=== PATIENT | male | born 1955 | race Caucasian/White ===

== ENCOUNTER 2018-12-30 15:20 | Emergency (ER) | payer MEDICARE, MEDICAID, SELFPAY ==
[2018-12-30 15:24] VITALS: BP 136/90; PULSE 67; RESP 18; TEMP 37.1; O2SAT 96
--- NOTE | 2018-12-30 15:36 | W.ED.GENAD ---
Discharge Plan Disposition Patient Disposition: HOME Condition: Stable Discharge Details Chief Complaint: EyeProblem Clinical Impression: Acute conjunctivitis of left eye Primary Care Provider: Cornel Harper ED Provider: Erasmo Nunez Home Meds and New Rx's Prescriptions: New erythromycin 5 mg/gram (0.5 %) ointment 1 applic OP DAILY 5 Days Qty: 1 RF: 0 amoxicillin-pot clavulanate [Augmentin] 875-125 mg tablet 1 tab PO Q12H Qty: 14 RF: 0 No Action fluoxetine 40 MG capsule 40 mg PO DAILY RF: 0 ibuprofen 800 MG tablet 800 mg PO TID RF: 0 epinephrine [EpiPen 2-Damion] 0.3 MG/0.3 ML auto-injector 1 ea IM DIRECTED RF: 0 pravastatin 10 MG tablet 10 mg PO DAILY RF: 0 Discharge Instructions Instructions: Conjunctivitis (ED) Medical Decision Making 63 yo male comes in with left eye redness since Wednesday. described as burning sensation, denies deep eye pain or severe pain. Denies foreign body or trauma. on exam the left conjunctia is injected throughout, eomi without pain, iop 10, does have some periorbital cellulitis. no findings to suggest orbital cellulitis, will tx with topical erythromycin and given the periorbital swelling will also add augmentin to cover for periorbital cellulitis. Advised f/u with pcp and return precautions given Differential Diagnosis conjunctivitis, periorbital cellulitis HPI General Mode of arrival: ambulatory. Date/Time Provider Initiated Documentation: 12/30/18 15:27. Limitations to Documentation: no limitations. Information obtained by: patient. History of Present Illness 63 year old M presents to the emergency department with the chief complaint of left eye redness, described as mild, Quality is described as burning, and is localized to the eyes. Patient started experiencing this day(s) (5) and it has been constant. No relieving factors improve symptom(s), No exacerbating factors reported . Patient notes no other symptoms.. Related Data Home Medications Medication Instructions Recorded Confirmed fluoxetine 40 mg PO DAILY 01/05/13 09/17/16 ibuprofen 800 mg PO TID 01/05/13 09/17/16 epinephrine [EpiPen 2-Damion] 1 ea IM DIRECTED 04/08/15 09/17/16 pravastatin 10 mg PO DAILY 04/08/15 09/17/16 amoxicillin-pot clavulanate 1 tab PO Q12H #14 tab 12/30/18 [Augmentin] erythromycin 1 applic OP DAILY 5 Days #1 gm 12/30/18 Previous Rx's Medication Instructions Recorded amoxicillin-pot clavulanate 1 tab PO Q12H #14 tab 12/30/18 [Augmentin] erythromycin 1 applic OP DAILY 5 Days #1 gm 12/30/18 Allergies Allergy/AdvReac Type Severity Reaction Status Date / Time venom-honey bee Allergy Severe anaphylaxis Unverified 09/22/17 09:54 [bee venom (honey bee)] risperidone AdvReac Intermediate Chest Unverified 09/22/17 09:54 Palpitations General Stated Complaint: EyeProblem ANTHONY: 4 Review of Systems Review of Systems All systems reviewed & are unremarkable except as noted in HPI and below Constitutional Denies chills, Denies fever(s) and Denies weakness ENT Denies change in voice Cardiovascular Denies chest pain and Denies dyspnea Respiratory Denies cough and Denies dyspnea Gastrointestinal Denies abdominal pain, Denies nausea and Denies vomiting Neurologic Denies weakness [facility] Social History Smoking/Tobacco Use Status: Former Tobacco Use Alcohol Intake: former Drug use: Never Do you feel safe at home: Yes Do you feel safe in your relationship?: Yes Exam Const General: no acute distress Orientation: alert HENMT Head: normal to inspection Ears: external ears normal General nose exam: external nose normal Mouth: moist mucous membranes Eyes Pupils: PERRL Neck Neck: normal visual inspection Resp Effort & Inspection: normal respiratory effort and able to speak in complete sentences Cardio Rate: regular rate Skin General skin exam: no rashes or lesions noted Neuro General: alert and oriented x3 Extrem General: normal to inspection Psych Mental Status: mental status grossly normal Course Vital Signs Temperature 37.1 C 12/30/18 15:24 Pulse 67 12/30/18 15:24 Respiratory Rate 18 12/30/18 15:24 Blood Pressure 136/90 12/30/18 15:24 Pulse Oximetry 96 12/30/18 15:24 Temperature 37.1 C 12/30/18 15:24 Temperature Source Tympanic 12/30/18 15:24 Pulse 67 12/30/18 15:24 Respiratory Rate 18 12/30/18 15:24 Respiratory Effort 12/30/18 15:26 Blood Pressure 136/90 12/30/18 15:24 Blood Pressure Position Supine 12/30/18 15:24 Pulse Oximetry 96 12/30/18 15:24 Oxygen Delivery Method Room Air 12/30/18 15:24 Oxygen Flow Rate 0 12/30/18 15:24
--- NOTE | 2018-12-30 15:41 | ED.GENADUL_ITS ---
Discharge Plan Disposition Patient Disposition: HOME Condition: Stable Discharge Details Chief Complaint: EyeProblem Clinical Impression: Acute conjunctivitis of left eye Primary Care Provider: Cornel Harper ED Provider: Erasmo Nunez Home Meds and New Rx's Prescriptions: New erythromycin 5 mg/gram (0.5 %) ointment 1 applic OP DAILY 5 Days Qty: 1 RF: 0 amoxicillin-pot clavulanate [Augmentin] 875-125 mg tablet 1 tab PO Q12H Qty: 14 RF: 0 No Action fluoxetine 40 MG capsule 40 mg PO DAILY RF: 0 ibuprofen 800 MG tablet 800 mg PO TID RF: 0 epinephrine [EpiPen 2-Damion] 0.3 MG/0.3 ML auto-injector 1 ea IM DIRECTED RF: 0 pravastatin 10 MG tablet 10 mg PO DAILY RF: 0 Discharge Instructions Instructions: Conjunctivitis (ED) Medical Decision Making 63 yo male comes in with left eye redness since Wednesday. described as burning sensation, denies deep eye pain or severe pain. Denies foreign body or trauma. on exam the left conjunctia is injected throughout, eomi without pain, iop 10, does have some periorbital cellulitis. no findings to suggest orbital cellulitis, will tx with topical erythromycin and given the periorbital swelling will also add augmentin to cover for periorbital cellulitis. Advised f/u with pcp and return precautions given Differential Diagnosis conjunctivitis, periorbital cellulitis HPI General Mode of arrival: ambulatory . Date/Time Provider Initiated Documentation: 12/30/18 15:27 . Limitations to Documentation: no limitations . Information obtained by: patient . History of Present Illness 63 year old M presents to the emergency department with the chief complaint of left eye redness, described as mild, Quality is described as burning, and is localized to the eyes. Patient started experiencing this day(s) (5) and it has been constant. No relieving factors improve symptom(s), No exacerbating factors reported . Patient notes no other symptoms.. Related Data Home Medications Medication Instructions Recorded Confirmed fluoxetine 40 mg PO DAILY 01/05/13 09/17/16 ibuprofen 800 mg PO TID 01/05/13 09/17/16 epinephrine [EpiPen 2-Damion] 1 ea IM DIRECTED 04/08/15 09/17/16 pravastatin 10 mg PO DAILY 04/08/15 09/17/16 amoxicillin-pot clavulanate 1 tab PO Q12H #14 tab 12/30/18 [Augmentin] erythromycin 1 applic OP DAILY 5 Days #1 gm 12/30/18 Previous Rx's Medication Instructions Recorded amoxicillin-pot clavulanate 1 tab PO Q12H #14 tab 12/30/18 [Augmentin] erythromycin 1 applic OP DAILY 5 Days #1 gm 12/30/18 Allergies Allergy/AdvReac Type Severity Reaction Status Date / Time venom-honey bee Allergy Severe anaphylaxis Unverified 09/22/17 09:54 [bee venom (honey bee)] risperidone AdvReac Intermediate Chest Unverified 09/22/17 09:54 Palpitations General Stated Complaint: EyeProblem ANTHONY: 4 Review of Systems Review of Systems All systems reviewed & are unremarkable except as noted in HPI and below Constitutional Denies chills, Denies fever(s) and Denies weakness ENT Denies change in voice Cardiovascular Denies chest pain and Denies dyspnea Respiratory Denies cough and Denies dyspnea Gastrointestinal Denies abdominal pain, Denies nausea and Denies vomiting Neurologic Denies weakness REPLACED BY [facility] Social History Smoking/Tobacco Use Status: Former Tobacco Use Alcohol Intake: former Drug use: Never Do you feel safe at home: Yes Do you feel safe in your relationship?: Yes Exam Const General: no acute distress Orientation: alert HENMT Head: normal to inspection Ears: external ears normal General nose exam: external nose normal Mouth: moist mucous membranes Eyes Pupils: PERRL Neck Neck: normal visual inspection Resp Effort & Inspection: normal respiratory effort and able to speak in complete sentences Cardio Rate: regular rate Skin General skin exam: no rashes or lesions noted Neuro General: alert and oriented x3 Extrem General: normal to inspection Psych Mental Status: mental status grossly normal Course Vital Signs Temperature 37.1 C 12/30/18 15:24 Pulse 67 12/30/18 15:24 Respiratory Rate 18 12/30/18 15:24 Blood Pressure 136/90 12/30/18 15:24 Pulse Oximetry 96 12/30/18 15:24 Temperature 37.1 C 12/30/18 15:24 Temperature Source Tympanic 12/30/18 15:24 Pulse 67 12/30/18 15:24 Respiratory Rate 18 12/30/18 15:24 Respiratory Effort 12/30/18 15:26 Blood Pressure 136/90 12/30/18 15:24 Blood Pressure Position Supine 12/30/18 15:24 Pulse Oximetry 96 12/30/18 15:24 Oxygen Delivery Method Room Air 12/30/18 15:24 Oxygen Flow Rate 0 12/30/18 15:24
[2018-12-30 15:49] VITALS: BP 136/90; PULSE 67; RESP 18; TEMP 37.1; O2SAT 96
== END 2018-12-30 15:50 | disposition home or self-care (01) ==
LOC: ER 15:42
PROVIDERS: Emergency Provider Emergency Medicine; PCP Internal Medicine
DX: H10.32 Unspecified acute conjunctivitis, left eye (principal)
CPT/HCPCS: 99283

== ENCOUNTER → 2022-03-27 00:32 | Outpatient (CLI) | payer OTHER, SELFPAY ==
--- NOTE | 2022-03-27 | DI.US_ITS ---
Exam(s) US ABDOMEN LIMITED EXAM: US ABDOMEN LIMITED CLINICAL HISTORY: EPIGASTRIC PAIN R10.13 AND NAUSEA ? GALLBLADDER DISEASE TECHNIQUE: Ultrasound abdomen performed using standard protocol. COMPARISON: No exams were available for comparison FINDINGS: PANCREAS: Normal where visualized. LIVER: Normal. Hepatopedal flow in the Portal Vein. The liver measures in 14.8 cm length. GALLBLADDER: No evidence of cholelithiasis. No evidence of wall thickening. No pericholecystic fluid identified. BILIARY SYSTEM: Common bile duct measures < 7 mm. No intrahepatic biliary ductal dilation. GALICIA'S SIGN: Negative. RIGHT KIDNEY: Kidney is normal in size. No evidence of renal calculi. No evidence of hydronephrosis. No renal mass or cyst identified. ASCITES: None seen. IMPRESSION: Normal sonographic appearance of the upper abdomen. DATA REPOSITORY:
== END ==
PROVIDERS: PCP Internal Medicine; Visit Provider Internal Medicine
DX: R10.13 Epigastric pain (principal); R11.0 Nausea
CPT/HCPCS: 76705

== ENCOUNTER 2022-11-27 00:14 | Outpatient (CLI) | payer OTHER, MEDICAID, SELFPAY ==
--- NOTE | 2022-11-27 | DI.US_ITS ---
Exam(s) US ABDOMEN LIMITED EXAM: US ABDOMEN LIMITED CLINICAL HISTORY: HEP C,B19.20,H/O ALCOHOLISM,EVAL FOR CIRRHOSIS, TECHNIQUE: Ultrasound abdomen performed using standard protocol. COMPARISON: US US ABDOMEN LIMITED from 03/27/2022 FINDINGS: PANCREAS: Normal where visualized. LIVER: Normal. Hepatopedal flow in the Portal Vein. The liver measures in 14.2 cm length. GALLBLADDER: No evidence of cholelithiasis. No evidence of wall thickening. No pericholecystic fluid identified. BILIARY SYSTEM: Common bile duct measures < 7 mm. No intrahepatic biliary ductal dilation. GALICIA'S SIGN: Negative. RIGHT KIDNEY: Kidney is normal in size. No evidence of renal calculi. No evidence of hydronephrosis. No renal mass or cyst identified. ASCITES: None seen. ABDOMINAL AORTA AND IVC: Visualized portions normal caliber. IMPRESSION: Normal sonographic appearance of the upper abdomen. DATA REPOSITORY:
== END 2022-11-27 00:34 ==
PROVIDERS: PCP Internal Medicine; Visit Provider Student in an Organized Health Care Education/Training Program
DX: B19.20 Unspecified viral hepatitis C without hepatic coma (principal)
CPT/HCPCS: 76705

== ENCOUNTER 2022-11-28 13:48 | Emergency (ER) | payer OTHER, MEDICAID, SELFPAY ==
[2022-11-28] VITALS (33 sets, daily range): BP systolic 114–142; BP diastolic 72–86; PULSE 57–65; RESP 12–18; TEMP 36.9; O2SAT 96–99
--- NOTE | 2022-11-28 14:00 | RT.EKG_ITS ---
APPROVED REPORT Exam: Resting ECG Reason for Exam: heartburn Patient Location: E HR:65 bpm ECG Measurements Heart Rate [address] 157 P 13 QRSd 88 QRS 48 QT 427 T 71 QTc 444 Conclusion Sinus rhythm...normal P axis, V-rate 60- 99 Physician: no stemi, minimal elevation in III but no recip depressions or other elevations
--- NOTE | 2022-11-28 14:11 | ED.GENADUL_ITS ---
Discharge Plan Discharge Details Chief Complaint: Nk/Back Pain Clinical Impression: Chest pain Primary Care Provider: Kai Soto ED Provider: Zohaib Lainez Home Meds and New Rx's Prescriptions: No Action fluoxetine 40 MG capsule 40 mg PO DAILY Patient Comments: 5 pt states he takes 20 mg q day.HE ibuprofen 800 MG tablet 800 mg PO TID epinephrine [EpiPen 2-Damion] 0.3 MG/0.3 ML auto-injector 1 ea IM DIRECTED Patient Comments: 01.13.16 pt states he does not have a new epipen.HE pravastatin 10 MG tablet 10 mg PO DAILY Patient Comments: .10.29 pt does not know dose.HE amoxicillin-pot clavulanate [Augmentin] 875-125 mg tablet 1 tab PO Q12H Qty: 14 0RF Patient Comments: not taking Medical Decision Making 66-year-old male with a past medical history of distant tobacco abuse, high cholesterol, who presents today for evaluation of chest discomfort. Patient states that yesterday about 5 hours after snowblowing he developed heartburn which did not get better with Tums. It eventually went away on its own. It occurred at rest and not with exertion. He describes it as a burning and pressure-like sensation in his chest. Additionally, today while he was just resting in his chair he noticed some back pain from his mid spine going up towards his neck that lasted a few minutes. This was about 1 hour ago. It was also at rest. It got better on its own without intervention. He had no associated chest pain chest heaviness or chest tightness at that time. He came to the ER for further assessment. Currently he is asymptomatic, and denies any symptoms in his chest or abdomen whatsoever. He states that he feels well. He denies any vomiting or diarrhea. He denies any previous history of cardiac disease. He denies any other complaints at this time. Family history is positive for cardiac disease on his mother side. Physical exam demonstrates a well-appearing male, no reproducible chest or back or spinal tenderness. He is asymptomatic at this time. Vital signs are notably normal. EKG shows no evidence of STEMI. Minimal questionable elevation in lead III, but no other evidence of STEMI or reciprocal depressions. Symptoms appear unlikely for ACS, but with his risk factors of family history, previous tobacco, and high cholesterol and age it is certainly of concern on her differential. We will evaluate for this, monitor closely and reassess. Symptoms appear notably less consistent with dissection or PE. We will get a D- dimer though out of an abundance of precaution. 3:36 PM Laboratory work-up has returned normal, electrolytes stable, creatinine relatively stable, troponin and D-dimer normal. Lipase normal. We will get chest x-ray for imaging. We will get repeat troponin. Patient otherwise appears well. Patient will be signed out for follow-up on repeat troponin. Suspect musculoskeletal or GERD component, at this time the patient's symptoms appear less likely for cardiac etiology. Will recommend outpatient stress testing. HPI General Date/Time Provider Initiated Documentation: 11/28/22 13:56 . HPI Narrative: 66-year-old male with a past medical history of distant tobacco abuse, high cholesterol, who presents today for evaluation of chest discomfort. Patient states that yesterday about 5 hours after snowblowing he developed heartburn which did not get better with Tums. It eventually went away on its own. It occurred at rest and not with exertion. He describes it as a burning and pressure-like sensation in his chest. Additionally, today while he was just resting in his chair he noticed some back pain from his mid spine going up towards his neck that lasted a few minutes. This was about 1 hour ago. It was also at rest. It got better on its own without intervention. He had no associated chest pain chest heaviness or chest tightness at that time. He came to the ER for further assessment. Currently he is asymptomatic, and denies any symptoms in his chest or abdomen whatsoever. He states that he feels well. He denies any vomiting or diarrhea. He denies any previous history of cardiac disease. He denies any other complaints at this time. Family history is positive for cardiac disease on his mother side. Related Data Home Medications Medication Instructions Recorded Confirmed fluoxetine 40 mg capsule 40 mg PO DAILY 01/05/13 11/28/22 ibuprofen 800 mg tablet 800 mg PO TID 01/05/13 11/28/22 epinephrine 0.3 mg/0.3 mL 1 ea IM DIRECTED 04/08/15 11/28/22 injection, auto-injector (EpiPen 2-Damion) pravastatin 10 mg tablet 10 mg PO DAILY 04/08/15 11/28/22 amoxicillin 875 mg-potassium 1 tab PO Q12H #14 tabs 12/30/18 clavulanate 125 mg tablet (Augmentin) Previous Rx's Medication Instructions Recorded amoxicillin 875 mg-potassium 1 tab PO Q12H #14 tabs 12/30/18 clavulanate 125 mg tablet (Augmentin) Allergies Allergy/AdvReac Type Severity Reaction Status Date / Time venom-honey bee Allergy Severe anaphylaxis Unverified 11/28/22 13:59 [bee venom (honey bee)] risperidone AdvReac Intermediate Chest Unverified 11/28/22 13:59 Palpitations General Stated Complaint: Nk/Back Pain ANTHONY: 3 Review of Systems All systems reviewed & are unremarkable except as noted in HPI and below PFSH All Active Problems (Updated 11/28/22 @ 15:37 by Zohaib Lainez DO) Chest pain (Acute) Social History Smoking/Tobacco Use Status: Former Tobacco Use Smoking risk assessment performed?: Yes Alcohol Intake: former Drug use: Never Do you feel safe at home: Yes Do you feel safe in your relationship?: Yes Exam Narrative Exam Narrative: 1.Const: Well-nourished, Well-developed, appearing stated age 2.Eyes: PERRL, no conjunctival injection, and symmetrical lids. 3.ENT: Atraumatic external nose and ears. Moist MM. Neck: Symmetric, trachea midline, No thyromegaly. 4.CVS: +S1/S2, No murmurs or gallops. Peripheral pulses 2+ and equal in all extremities. Brisk capillary refill in all extremities. 5.RESP: Unlabored respiratory effort. Clear to auscultation bilaterally. No wheezes rales or rhonchi 6.GI: Soft, Nontender/Nondistended, No hepatosplenomegaly. No guarding or rebound. 7.MSK: Normocephalic/Atraumatic, Extremities w/o deformity or ttp No cyanosis or clubbing, Normal movement of all extremities. No midline cervical thoracic or lumbar spine tenderness 8.Skin: Warm, Dry. No rashes or lesions. 9.Neuro: pizza baker II-XII grossly intact. Sensation grossly intact, no focal neurologic deficits. 10.Psych: (AAO) x3. Appropriate mood and affect Course Vital Signs Vital signs: Vital Signs Temperature 36.9 C 03/18/23 13:55 Pulse 65 11/28/22 13:55 Respiratory Rate 18 11/28/22 13:55 Blood Pressure 129/77 11/28/22 13:55 Pulse Oximetry 99 11/28/22 13:55 Temperature 36.9 C 11/28/22 13:55 Temperature Source Oral 11/28/22 13:55 Pulse 65 11/28/22 13:55 Respiratory Rate 18 11/28/22 13:55 Respiratory Effort Normal, Non-Labored 11/28/22 13:57 Blood Pressure 129/77 11/28/22 13:55 Pulse Oximetry 99 11/28/22 13:55 Oxygen Delivery Method Room Air 11/28/22 13:55 Oxygen Flow Rate 0 11/28/22 13:55
[2022-11-28] MEDS: Aspirin 81 MG CHEW 324 MG CH (14:23)
[2022-11-28 14:25] LABS: Abs Immature Grans 0.01 10^3/uL (0.0-0.06); Absolute Basophil Count 0.03 10^3/uL (0.0-0.2); Absolute Eosinophil Count 0.22 10^3/uL (0.0-0.7); Absolute Lymphocyte Count 1.38 10^3/uL (1.2-3.4); Absolute Monocyte Count 0.63 10^3/uL (0.1-0.8); Absolute Neutrophil Count 4.78 10^3/uL (1.2-6.7); Basophils % 0.4; Eosinophils % 3.1; HCT 40.5 % (40.0-50.0); Immature Grans % 0.1; Lymphocytes % 19.6; MCH 30.8 pg (27.0-33.0); MCHC 34.6 % (32.0-36.0); MCV 89 fL (80-95); MPV 8.5 fL (8.0-11.0); Monocytes % 8.9; Neutrophils % 67.9; Platelet Count 294 10^3/uL (130-400); RBC 4.55 10^6/uL (4.36-5.78); RDW 12.7 % (11.8-14.1); RDW-SD 41.6 fL; WBC 7.05 10^3/uL (4.4-10.8)
[2022-11-28 14:41] LABS: PTT Activated 23.4 sec (21.5-31.9); Prothrombin Time 9.7 sec (9.3-11.0)
[2022-11-28 14:43] LABS: Troponin I < 50 ng/L (<or=60)
[2022-11-28 14:52] LABS: ALT 28 U/L (16-63); AST 20 U/L (15-37); Albumin 4.1 g/dL (3.4-5.0); Alkaline Phosphatase 49 U/L (46-116); Anion Gap 6.2 mmol/L (3-11); BUN 21 mg/dL (7-18); Bilirubin, Total 0.3 mg/dL (0.2-1.0); CO2 27.8 mmol/L (21.0-32.0); CREATININE 1.4 mg/dL (0.70-1.30); Calcium 9.1 mg/dL (8.5-10.1); Chloride 98 mmol/L (98-107); Estimated GFR 55.78 (mL/min/1.73m2); Glucose 89 mg/dL (74-106); Lipase 61 U/L (16-77); NT-proBNP 69 pg/mL (<300); Potassium 4.3 mmol/L (3.5-5.1); Sodium 132 mmol/L (136-145); Total Protein 8.2 g/dL (6.4-8.2)
[2022-11-28 15:16] LABS: D-Dimer 404 ng/mlFEU (<500)
--- NOTE | 2022-11-28 15:30 | DI.RAD_ITS ---
Exam(s) XR CHEST 2V PA LATERAL EXAM: XR CHEST 2V PA LATERAL CLINICAL HISTORY: midline chest and back pain TECHNIQUE: 2D digital imaging was performed of the chest. Two images were obtained. PA and lateral views were obtained. COMPARISON: CR CHEST 2 VIEWS PA,LAT from 09/22/2017 FINDINGS: MEDIASTINUM: Normal. HEART: Normal. PULMONARY VASCULATURE: Normal. LUNGS: Clear. PLEURAL SPACE: No pleural effusion or pneumothorax. BONE:Within normal limits for the patient's age. OTHER FINDINGS:Normal. IMPRESSION: No acute pulmonary findings. DATA REPOSITORY: RADIATION DOSE DELIVERED:
--- NOTE | 2022-11-28 16:00 | RT.EKG_ITS ---
APPROVED REPORT Exam: Resting ECG Reason for Exam: chest pain Patient Location: E HR:58 bpm ECG Measurements Heart Rate 58 AXIS SC 166 P 13 QRSd 89 QRS 31 QT 417 T 72 QTc 410 Conclusion Sinus bradycardia...rate< 60
--- NOTE | 2022-11-28 16:11 | NUR.NOTE ---
Nursing Note: Stress test order (Regular Exercise Treadmill Test) faxed to [facility] for scheduling. Instructions given to patient.
--- NOTE | 2022-11-28 16:24 | DI.VRAD_ITS ---
PROCEDURE INFORMATION: Exam: XR Chest Exam date and time: 11/28/2022 3:48 PM Age: 66 years old Clinical indication: Other: Midline chest and back pain TECHNIQUE: Imaging protocol: Radiologic exam of the chest. Views: 2 views. COMPARISON: CR CHEST 2 VIEWS PA,LAT 09/22/2017 2:11 PM FINDINGS: Lungs: Unremarkable. No consolidation. Pleural spaces: Unremarkable. No pleural effusion. No pneumothorax. Heart/Mediastinum: Unremarkable. No cardiomegaly. Bones/joints: Mild degenerative changes of the osseous structures. IMPRESSION: No acute findings. Dictated and Authenticated by: Daniel Espinoza MD. Ordering:MARLEY Penny MD
--- NOTE | 2022-11-28 16:25 | W.EDPROG ---
Date of service: 11/28/22 Time of Service: 16:25 Medical Decision Making Care transition to myself from Dr. Lainez. Please see his initial note regarding history, presentation and exam. Please brief, patient is a pleasant 66-year-old gentleman presenting today with chief complaint of chest discomfort. Initial work-up has been generally unremarkable with no evidence of acute ischemic pathology in the EKG and negative troponin. At the time I assumed care, troponin and chest x-ray pending. Patient has been resting comfortably and has been asymptomatic. Dr. Lainez already arranged for outpatient stress test. Chest x-ray reviewed by radiologist with no acute findings noted. Repeat troponin and repeat EKG remained within normal limits and unchanged. Patient did have brief recurrence of some of his left-sided chest discomfort which he indicates is far lateral. He does report that he was very active prior to the onset of the discomfort but not during his episodes of activity. Actually, it was several hours later that the discomfort began. We discussed inpatient treatment given the recurrent nature and patient declines it. His symptoms are not classically associated with ACS although he does have risk factors. I agree with Dr. Lainez's previous plan of outpatient stress test as soon as possible and close care with his primary care. He and I discussed this at length. He does live locally and has good supportive family, is able to return with any new or worsening symptoms. Strict return precautions discussed. He will take baby aspirin until reevaluated by primary care. All of his questions and concerns were addressed and he is in agreement this plan peer Sign Out Sign Out Data: Sign Out Comment: Chest pain, follow-up on repeat troponin and EKG Last updated by Zohaib Lainez DO at 11/28/22 16:09 Discharge Plan Disposition Patient Disposition: Home Condition: Stable Discharge Details Clinical Impression: Chest pain Primary Care Provider: Kai Soto ED Provider: Cheryl Carranza Home Meds and New Rx's Prescriptions: Continued fluoxetine 40 MG capsule 40 mg PO DAILY Patient Comments: 5.2.16 pt states he takes 20 mg q day.HE ibuprofen 800 MG tablet 800 mg PO TID epinephrine [EpiPen 2-Damion] 0.3 MG/0.3 ML auto-injector 1 ea IM DIRECTED Patient Comments: 5.2.16 pt states he does not have a new epipen.HE pravastatin 10 MG tablet 10 mg PO DAILY Patient Comments: 5.2.16 pt does not know dose.HE amoxicillin-pot clavulanate [Augmentin] 875-125 mg tablet 1 tab PO Q12H Qty: 14 0RF Patient Comments: not taking Discharge Instructions Instructions: Chest Pain (ED) Additional Instructions: As we discussed, your labs, EKG and work-up here were reassuring. However, I do remain concerned for potential heart disease. Dr. Lainez has already referred you for a stress test. They will call you to schedule follow-up appointment for the stress testing however, in the interim if you develop any increased pain, longer lasting pain, other symptoms such as dizziness, shortness of breath, nausea or any other new/worsening symptom please seek care urgently once again. Also, please follow-up with primary care in the next week for reevaluation. Referrals: Kai Soto [Primary Care Provider] -
[2022-11-28 17:40] LABS: Troponin I < 50 ng/L (<or=60)
--- NOTE | 2022-12-07 17:07 | NUR.NOTE ---
Nursing Note: Patient called stating that he was still waiting to hear about the echo that he was told would be ordered.I checked the documentation and do not see anything documented. Gave the pt phone number to Bhavna Carranza to call back.
== END 2022-11-28 18:35 | disposition home or self-care (01) ==
PROVIDERS: Student in an Organized Health Care Education/Training Program; Emergency Provider Physician Assistant; PCP Student in an Organized Health Care Education/Training Program
DX: R07.89 Other chest pain (principal); M54.9 Dorsalgia, unspecified; M54.2 Cervicalgia; E78.00 Pure hypercholesterolemia, unspecified
CPT/HCPCS: 80053; 83690; 93005; 99283; 71046; 83880; 84484; 85025; 85379; 85610; 85730; 93010; 99285

== ENCOUNTER 2022-12-03 02:59 | Outpatient (CLI) | payer OTHER, MEDICAID, SELFPAY ==
--- NOTE | 2022-12-03 15:00 | ETT_ITS ---
APPROVED REPORT Exam: Exercise Treadmill Patient Location: Out-Patient Room/Bed: Stress Nurse: Enid Castillo RN Ordering Provider:LA SANTANA, Contact Number: [phone] BMI: 23.52 Baseline Rhythm: Sinus Rhythm Indications: Chest pain. Medical History Medical History: Back pain, depression. HLD, hearing loss. Cardiac Medications: Fluoxetine, pravastatin, trazadone. Allergies: Honey bee venom, risperidone. Cardiac Risk Factors: Family Hx, HLD, former smoker (35 years ago) Previous Cardiac Procedures: None Pretest Chest Pain Characteristics: None Exercise History: Sedentary Physical Disabilities: None Lung Sounds: Clear to auscultation Heart Sounds: Regular Stress Test Details Test: Exercise stress testing was performed using a Rafi protocol. Rest Stress HR Resting HR Supine: 62 bpm Max Heart Rate (APMHR): 154 bpm Resting HR Standin bpm Target HR (85% APMHR): 131 bpm Max HR Achieved: 136 bpm % of APMHR: 88 Recovery HR: 76 bpm HR response to stress: Normal HR response to stress BP Resting BP Supine: 144/90 mmHg Resting BP Standin/76 mmHg Max BP: 190/82 mmHg Recovery BP: 138/80 mmHg BP response to stress: Normal blood pressure response to stress. ECG Resting ECG: Sinus Rhythm Ectopy: None Stress ECG: Sinus Tachycardia ST Change: No significant ST segment changes noted Arrhythmia: None Recovery ECG: Sinus Rhythm Recovery ST Change: No significant ST segment changes noted Recovery Arrhythmia: None Clinical Reason for Termination: Fatigue Stress Symptoms: Moderate Dyspnea, , General Fatigue Exercise duration: 7 min52 sec Highest Stage Reached: Stage 2: 2.5 mph at 12% grade. Exercise capacity: 9.95 METs Angina Score: None Jordan Treadmill Score: 7.5 Rate Pressure Product: [id number] Stress ECG Conclusion 1. The resting electrocardiogram was within normal limits 2. Patient exercised on the Rafi protocol and completed a workload of 9.95 METS 3. Normal heart rate and blood pressure response to exercise. The patient achieved 88% of predicted heart rate for age 4. There was no electrocardiographic evidence of myocardial ischemia 5. There were no significant dysrhythmias Jordan Treadmill Score is 7.5 which is Low risk. Stress Test Summary STAGE Time (mins) Speed (mph) Grade (%) HR BP SpO2 SYMPTOMS METS Supine 62 144/90 Standing 75 140/76 1 3 1.7 10 113 184/78 96 Mild SOB 4.5 2 6 2.5 12 122 190/82 Moderate SOB 7 1 min recovery 126 158/82 96 SOB resolving 3 min recovery 79 160/84 6 min recovery 76 138/80 96 SOB resolved
== END 2022-12-03 03:19 ==
LOC: DI 02:59
PROVIDERS: PCP Student in an Organized Health Care Education/Training Program; Visit Provider Student in an Organized Health Care Education/Training Program
DX: R07.9 Chest pain, unspecified (principal)
CPT/HCPCS: 93016; 93018; 93017

== ENCOUNTER 2023-06-10 12:50 | Outpatient (REF) | payer OTHER, MEDICAID, SELFPAY ==
[2023-06-11 13:04] LABS: Campylobacter PCR Negative (Negative); Salmonella PCR Negative (Negative); Shiga Toxin PCR Negative (Negative); Shigella/Enteroinvasive Ecoli Negative (Negative)
== END 2023-06-10 12:51 | disposition home or self-care (01) ==
LOC: LBN 12:50
PROVIDERS: PCP Student in an Organized Health Care Education/Training Program; Visit Provider Physician Assistant
DX: R19.7 Diarrhea, unspecified (principal)
CPT/HCPCS: 87329; 87505

== ENCOUNTER → 2023-12-10 01:06 | Outpatient (CLI) | payer OTHER, MEDICAID, SELFPAY ==
--- NOTE | 2023-12-10 | DI.US_ITS ---
Exam(s) US ABDOMEN LIMITED EXAM: US ABDOMEN LIMITED CLINICAL HISTORY: R19.01 RUQ abd mass,eval for lipoma/gallbladder pathology TECHNIQUE: Ultrasound abdomen performed using standard protocol. COMPARISON: CT CTA THORAX from 09/22/2017 US US ABDOMEN LIMITED from 11/27/2022 FINDINGS: PANCREAS: Normal where visualized. LIVER: Normal. Hepatopetal flow in the Portal Vein. The liver measures in 13.6 cm length. No evidence of a hepatic mass. GALLBLADDER: No evidence of cholelithiasis. No evidence of wall thickening. No pericholecystic fluid identified. BILIARY SYSTEM: Common bile duct measures < 7 mm. No intrahepatic biliary ductal dilation. GALICIA'S SIGN: Negative. RIGHT KIDNEY: Kidney is normal in size. No evidence of renal calculi. No evidence of hydronephrosis. No renal mass or cyst identified. ASCITES: None seen. SOFT TISSUES: There is a 3.5 x 1.2 x 2.1 cm subcutaneous mass which is isoechoic to the surrounding f at. The finding is most suggestive of a lipoma. IMPRESSION: 1. Normal sonographic appearance of the upper abdomen. 2. 3.5 x 1.2 x 2.1 cm subcutaneous mass in the anterior abdominal wall. It is most consistent sonogr aphically with a lipoma. DATA REPOSITORY:
== END ==
PROVIDERS: PCP Student in an Organized Health Care Education/Training Program; Visit Provider Physician Assistant Medical
DX: R19.01 Right upper quadrant abdominal swelling, mass and lump (principal); D17.1 Benign lipomatous neoplasm of skin and subcutaneous tissue of trunk
CPT/HCPCS: 76705

== ENCOUNTER 2024-03-19 20:17 | Emergency (ER) | payer OTHER, MEDICAID, SELFPAY ==
[2024-03-19 20:19] VITALS: BP 142/96; PULSE 64; RESP 18; TEMP 36.2; O2SAT 98
[2024-03-19] MEDS: Dexamethasone 4 MG TAB 8 MG PO (20:46)
[2024-03-19] MEDS: hydrOXYzine HCL 25 MG TAB PO (20:46)
--- NOTE | 2024-03-19 21:53 | ED.GENADUL_ITS ---
Discharge Plan Disposition Patient Disposition: Home Condition: Stable Discharge Details Clinical Impression: Phytophotodermatitis Primary Care Provider: Kai Soto ED Provider: Mikael Rivera Home Meds and New Rx's Prescriptions: New methylprednisolone [Medrol (Damion)] 4 mg tablets,dose pack See Rx Instructions .ROUTE .COMPLEX Qty: 21 0RF Rx Instructions: orally per package directions hydroxyzine HCl 25 mg tablet 25 mg PO TID PRN (Reason: itching) Qty: 20 0RF No Action fluoxetine 40 MG capsule 40 mg PO DAILY Patient Comments: 5..16 pt states he takes 20 mg q day.HE ibuprofen 800 MG tablet 800 mg PO TID epinephrine [EpiPen 2-Damion] 0.3 MG/0.3 ML auto-injector 1 ea IM DIRECTED Patient Comments: 01.13.16 pt states he does not have a new epipen.HE pravastatin 10 MG tablet 10 mg PO DAILY Patient Comments: 01.13.16 pt does not know dose.HE amoxicillin-pot clavulanate [Augmentin] 875-125 mg tablet 1 tab PO Q12H Qty: 14 0RF Patient Comments: not taking Discharge Instructions Instructions: Contact dermatitis Additional Instructions: * Keep skin areas clean with soap and water * Avoid direct sun exposure with clothing barrier or sunscreen * Take Medrol Dosepak as directed starting tomorrow * Hydroxyzine can help with the severe itchiness, but may make you sleepy * You can get kvyj-sdy-orthgzu hydrocortisone cream 1% to apply to your face, use this sparingly HPI General Date/Time Provider Initiated Documentation: 03/19/24 20:41 . Limitations to Documentation: no limitations . Information obtained by: patient . HPI Narrative: 68-year-old gentleman without significant past medical history presents for evaluation of rash. He reports that he has been having this rash for the last 2 weeks after doing some work with the [employer] or [employer] plant. 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 He reports itchy rash on his face and arms and legs. He states everywhere that he has touched himself after touching the rash is very itchy. He states that he tried plant pains without significant improvement in his symptoms. He denies any shortness of breath or vomiting. He reports that g oing out into the sun has made the rash burning and more painful. Related Data Home Medications Medication Instructions Recorded Confirmed fluoxetine 40 mg capsule 40 mg PO DAILY 01/05/13 03/19/24 ibuprofen 800 mg tablet 800 mg PO TID 01/05/13 03/19/24 epinephrine 0.3 mg/0.3 mL 1 ea IM DIRECTED 04/08/15 03/19/24 injection, auto-injector (EpiPen 2-Damion) pravastatin 10 mg tablet 10 mg PO DAILY 04/08/15 03/19/24 amoxicillin 875 mg-potassium 1 tab PO Q12H #14 tabs 12/30/18 03/19/24 clavulanate 125 mg tablet (Augmentin) hydroxyzine HCl 25 mg tablet 25 mg PO TID PRN itching #20 tabs 03/19/24 methylprednisolone 4 mg tablets in See Rx Instructions PO .COMPLEX 03/19/24 a dose pack (Medrol (Damion)) #21 dose pk Previous Rx's Medication Instructions Recorded amoxicillin 875 mg-potassium 1 tab PO Q12H #14 tabs 12/30/18 clavulanate 125 mg tablet (Augmentin) hydroxyzine HCl 25 mg tablet 25 mg PO TID PRN itching #20 tabs 03/19/24 methylprednisolone 4 mg tablets in See Rx Instructions PO .COMPLEX 03/19/24 a dose pack (Medrol (Damion)) #21 dose pk Allergies Allergy/AdvReac Type Severity Reaction Status Date / Time venom-honey bee Allergy Severe anaphylaxis Unverified 11/28/22 13:59 [bee venom (honey bee)] risperidone AdvReac Intermediate Chest Unverified 11/28/22 13:59 Palpitations General Stated Complaint: RashLesion ANTHONY: 4 Exam Narrative Exam Narrative: Review of Systems: All systems reviewed & are unremarkable except as noted in HPI and below Well-developed, no acute distress NCAT PERRL, normal conjunctiva RRR Unlabored respiratory effort no wheezing Nondistended abdomen Extremities w/o deformity, no cyanosis, no edema Erythematous urticarial rash noted on face particularly under the eyes, there are a few urticarial lesions on the upper extremity and some noted on the left inner thigh no focal neurologic deficits Appropriate mood and affect Course Vital Signs Vital signs: Vital Signs Temperature 36.2 C L 03/19/24 20:19 Pulse 64 03/19/24 20:19 Respiratory Rate 18 03/19/24 20:19 Blood Pressure 142/96 H 03/19/24 20:19 Pulse Oximetry 98 03/19/24 20:19 Temperature 36.2 C L 03/19/24 20:19 Temperature Source Temporal Artery Scan 03/19/24 20:19 Pulse 64 03/19/24 20:19 Respiratory Rate 18 03/19/24 20:19 Respiratory Effort Normal, Non-Labored 03/19/24 20:25 Blood Pressure 142/96 H 03/19/24 20:19 Pulse Oximetry 98 03/19/24 20:19 Oxygen Delivery Method Room Air 03/19/24 20:19 Oxygen Flow Rate 0 03/19/24 20:19 Pain Level 3 03/19/24 20:19 Medical Decision Making Emergent evaluation of rash. Likely contact dermatitis from the plant. Patient brought the plant in with him. There are no signs of anaphylaxis. No signs of secondary bacterial infection. Patient has tried a variety of home remedies without relief. At this time I do feel he needs steroids. A dose of dexamethasone was given in the emergency department and will be discharged on Medrol Dosepak. Recommend using topical qcat-auo-qoocgdo hydrocortisone sparingly on his face. Hydroxyzine was given for severe itching. He was advised to use this with caution as it can be sedating. Return precautions advised. Recommend follow-up with PCP if symptoms or not improving with steroids Medical Records Medical records reviewed: Yes I reviewed the patient's medical records. Quality:SDOH Health Related Social Needs: No Data to Display PFSH All Active Problems Phytophotodermatitis (Acute) Social History Smoking/Tobacco Use Status: Former Tobacco Use Smoking risk assessment performed?: Yes Alcohol Intake: former Drug use: Never Substance use type: does not use Do you feel safe at home: Yes Do you feel safe in your relationship?: Yes
== END 2024-03-19 21:15 | disposition home or self-care (01) ==
LOC: ER 21:14
PROVIDERS: Emergency Provider Emergency Medicine; PCP Student in an Organized Health Care Education/Training Program
DX: L23.7 Allergic contact dermatitis due to plants, except food (principal)
CPT/HCPCS: 99283; 99282; J8540

== ENCOUNTER 2024-03-29 08:22 | Emergency (ER) | payer OTHER, MEDICAID, SELFPAY ==
[2024-03-29 08:23] VITALS: BP 132/87; PULSE 61; RESP 12; TEMP 36.6; O2SAT 96
--- NOTE | 2024-03-29 08:34 | W.ED.GENAD ---
Discharge Plan Disposition Patient Disposition: Home Condition: Good Discharge Details Clinical Impression: Phytophotodermatitis Primary Care Provider: Kai Soto ED Provider: Cheryl Carranza Home Meds and New Rx's Prescriptions: New prednisone 10 mg tablet 10 mg PO DIRECTED Qty: 53 0RF Rx Instructions: 60mg x 3 days 40mg x 5 days 20mg x 5 days 10mg x 5 days Continued fluoxetine 40 MG capsule 40 mg PO DAILY Patient Comments: 5.. pt states he takes 20 mg q day.HE ibuprofen 800 MG tablet 800 mg PO TID epinephrine [EpiPen 2-Damion] 0.3 MG/0.3 ML auto-injector 1 ea IM DIRECTED Patient Comments: 5.. pt states he does not have a new epipen.HE pravastatin 10 MG tablet 10 mg PO DAILY Patient Comments: 5.10.29 pt does not know dose.HE Discharge Instructions Instructions: Allergic Reaction ED, Poison [place], Poison [place], Poison [place] ED Additional Instructions: I am concerned that you had a rebound allergic dermatitis after stopping the steroids associated with your exposure to the oral plant. Please avoid his plant or wear gloves when working with this in the future. You may use the hydroxyzine as prescribed to help with itchiness, this can cause some sedation so please take only when needed and prior to bed to help sleep. As discussed, you may find that propping yourself up at night will help with some of the facial swelling,. Please take the steroids as prescribed. This is complex dosing so please make sure to follow the instructions carefully. This will be a longer taper, similar to how we treat the poison sheila, and should help with stopping the reaction. Please follow-up with your primary care provider next week for reevaluation. If you develop any shortness of breath, swelling in or around the mouth, difficulty swallowing, abdominal upset or other new/worsening symptoms to seek care urgently once again. Referrals: Kai Soto [Primary Care Provider] - Discharge Data Discharge Date/Time-TO BE ENTERED AT DEPARTURE: 03/29/24 09:16 HPI General Date/Time Provider Initiated Documentation: 03/29/24 08:34. Limitations to Documentation: no limitations. Information obtained by: patient, RN notes reviewed and old records reviewed. History of Present Illness 68 year old M presents to the emergency department with the chief complaint of rash, swelling around eyes, itching, described as moderate and similar to prior episodes (was here recently for similar), Quality is described as other (itching), and is localized to the face, chest, abdomen, left, right and upper extremity. Patient started experiencing this day(s) and it has been constant. Medication improves symptom(s), (improved with steroids, came back once stopped) Other factors that worsen symptoms (came on with plant exposure) . Patient notes rash; denies cough, fever/chills, headaches, loss of appetite, malaise, nausea/vomiting and shortness of breath. Patient did receive the following treatments prior to arrival, none Related Data Home Medications ?Medication ?Instructions ?Recorded ?Confirmed fluoxetine 40 mg capsule 40 mg PO DAILY 01/05/13 03/29/24 ibuprofen 800 mg tablet 800 mg PO TID 01/05/13 03/29/24 epinephrine 0.3 mg/0.3 mL 1 ea IM DIRECTED 04/08/15 03/29/24 injection, auto-injector (EpiPen 2-Damion) pravastatin 10 mg tablet 10 mg PO DAILY 04/08/15 03/29/24 prednisone 10 mg tablet 10 mg PO DIRECTED #53 tabs 03/29/24 Previous Rx's ?Medication ?Instructions ?Recorded prednisone 10 mg tablet 10 mg PO DIRECTED #53 tabs 03/29/24 Allergies Allergy/AdvReac Type Severity Reaction Status Date / Time venom-honey bee (bee venom Allergy Severe anaphylaxis Unverified 03/29/24 08:30 (honey bee)) risperidone AdvReac Intermediate Chest Unverified 03/29/24 08:30 Palpitations General Stated Complaint: RashLesion ANTHONY: 4 Review of Systems Constitutional Constitutional: Reports as per HPI, Denies chills, Denies fatigue, Denies fever(s), Denies headache(s), Denies malaise and Denies poor appetite Eyes Eyes: Denies blurry vision, Denies change in vision, Denies eye discharge, Denies irritation, Denies itchy eyes and Denies eye pain ENT Ears, Nose, Mouth, and Throat: Denies otalgia, Denies facial pain, Denies headache(s), Denies nasal discharge, Denies sore throat, Denies throat swelling and Denies tongue swelling Cardiovascular Cardiovascular: Denies chest pain and Denies dyspnea Respiratory Respiratory: Denies chest congestion, Denies cough, Denies dyspnea, Denies stridor and Denies wheezing Gastrointestinal Gastrointestinal: Denies nausea and Denies vomiting Musculoskeletal Musculoskeletal: Reports as per HPI Integumentary/Breasts Skin/Breast: Reports as per HPI Neurologic Neurologic: Denies headache(s) Endocrine Endocrine: Denies fatigue Allergic/Immunologic Allergic/Immunologic: Denies itchy eyes, Denies throat swelling, Denies tongue swelling and Denies wheezing Exam Const General: cooperative, healthy appearing, comfortable, no acute distress and well developed Nutritional Appearance: average body habitus and well nourished Orientation: alert and awake [facility] Face and sinus: abnormal facial exam (urticarial rash on forehead) Mouth: oral mucosae normal, lip normal, tongue normal, moist mucous membranes and no muffled voice Eyes Alignment and Position: alignment normal and position normal Periorbital: periorbital findings abnormal bilaterally periorbital swelling; no tenderness and no crepitus Conjunctivae: conjunctivae normal Sclera: sclerae normal Cornea: corneas normal Pupils: PERRL EOM: EOM intact bilaterally (no pain) Neck Neck: normal visual inspection and no lymphadenopathy Chest Chest: rash (urticarial rash) Resp Effort & Inspection: normal respiratory effort, able to speak in complete sentences and no respiratory distress Auscultation: clear to auscultation bilaterally and no wheezes Cardio Rate: regular rate Rhythm: regular rhythm Heart Sounds: S1 normal and S2 normal Skin Rashes: rashes noted (urticaria rash noted on chest, upper arms, face) Neuro General: patient alert and patient awake Cognition: normal cognition Speech: speech normal Gait: normal gait Sensory Exam: no sensory deficits noted Course Vital Signs Vital signs: Vital Signs Temperature 36.6 C 03/29/24 08:23 Pulse 61 03/29/24 08:23 Respiratory Rate 12 03/29/24 08:23 Blood Pressure 132/87 03/29/24 08:23 Pulse Oximetry 96 03/29/24 08:23 Temperature 36.6 C 03/29/24 08:23 Pulse 61 03/29/24 08:23 Respiratory Rate 12 03/29/24 08:23 Respiratory Effort Normal, Non-Labored 03/29/24 08:28 Blood Pressure 132/87 03/29/24 08:23 Blood Pressure Position Sitting 03/29/24 08:23 Pulse Oximetry 96 03/29/24 08:23 Oxygen Delivery Method Room Air 03/29/24 08:23 Oxygen Flow Rate 0 03/29/24 08:23 Pain Level 0 03/29/24 08:23 Medical Decision Making Patient is a pleasant 68-year-old male, presenting for recurrent dermatitis associated with exposure to the [employer] plant. Patient was seen here 10 days ago and was treated with methylprednisolone taper. He states that while on this, it worked very well and his symptoms have completely subsided. However, about 2 days after, his symptoms were to return. He has noted an increase in this, rash on chest, abdomen, face. Yesterday and today noted having some swelling around the eyes. States that yesterday his upper lip was slightly swollen but has not been experiencing that today. On exam, patient appears nontoxic. 11 no respiratory distress. He has urticarial rash to the anterior chest, upper arms, forehead. This spares the back, remaining extremities. He does report that this can migrate which is consistent with urticarial rash. He does have some swelling around the eyes and appears more edematous. It is not painful to palpation. The eyes themselves do not appear to be affected, no discharge or pain. Intact extraocular movements without any discomfort. Patient does not appear to be having any type of anaphylactic reaction at this time. However, with the rebound of his symptoms particularly on the face, I do feel that longer course of steroids would be appropriate. Will treat this very similar to how we typically treat poison sheila and do a longer steroid taper. I discussed this with the patient. We discussed other supportive care measures. Encourage hydration. Return precautions were discussed. All his questions and concerns were addressed and he is in agreement this plan. Quality:SDOH Health Related Social Needs: No Data to Display PFSH All Active Problems (Updated 03/29/24 @ 09:05 by JHON Contreras) Phytophotodermatitis (Acute) Social History Smoking/Tobacco Use Status: Former Tobacco Use Smoking risk assessment performed?: Yes Alcohol Intake: former Drug use: Never Substance use type: does not use Do you feel safe at home: Yes Do you feel safe in your relationship?: Yes
== END 2024-03-29 09:16 | disposition home or self-care (01) ==
PROVIDERS: Emergency Provider Physician Assistant; PCP Student in an Organized Health Care Education/Training Program
DX: R21 Rash and other nonspecific skin eruption (principal); H02.841 Edema of right upper eyelid; H02.842 Edema of right lower eyelid; H02.844 Edema of left upper eyelid; H02.845 Edema of left lower eyelid; L23.7 Allergic contact dermatitis due to plants, except food
CPT/HCPCS: 99283

== ENCOUNTER 2024-11-26 08:59 | Emergency (ER) | payer MEDICARE, SELFPAY ==
[2024-11-26 09:01] VITALS: BP 161/108; PULSE 64; RESP 18; TEMP 36.5; O2SAT 99
--- NOTE | 2024-11-26 09:22 | ED.GENADUL_ITS ---
Discharge Plan Disposition Patient Disposition: Home Condition: Stable Discharge Details Clinical Impression: Photodermatitis, Rash of face Primary Care Provider: Kai Soto ED Provider: Mikael Rivera Home Meds and New Rx's Prescriptions: New methylprednisolone [Medrol (Damion)] 4 mg tablets,dose pack See Rx Instructions .ROUTE .COMPLEX Qty: 21 0RF Rx Instructions: for 6 days No Action fluoxetine 40 MG capsule 40 mg PO DAILY Patient Comments: 5..16 pt states he takes 20 mg q day.HE ibuprofen 800 MG tablet 800 mg PO TID epinephrine [EpiPen 2-Damion] 0.3 MG/0.3 ML auto-injector 1 ea IM DIRECTED Patient Comments: 5.. pt states he does not have a new epipen.HE pravastatin 10 MG tablet 10 mg PO DAILY Patient Comments: 5.16 pt does not know dose.HE prednisone 10 mg tablet 10 mg PO DIRECTED Qty: 53 0RF Rx Instructions: 60mg x 3 days 40mg x 5 days 20mg x 5 days 10mg x 5 days Discharge Instructions Instructions: Skin Rash ED Additional Instructions: Please take the steroids provided for the rash. Use topical emollient such as Aquaphor on your face and make sure to wear sunscreen when going out side. This rash does appear to have some element of photosensitivity to the sunlight. If you develop any difficulty swallowing, voice change, cough or vomiting please return to the emergency department. Please follow-up with your PCP for ongoing evaluation if symptoms are not resolving. HPI General Date/Time Provider Initiated Documentation: 11/26/24 09:09 . Limitations to Documentation: no limitations . Information obtained by: patient . HPI Narrative: 68-year-old gentleman without significant past medical history presents for evaluation of facial rash that has been present for the last 3 days. He reports that it is a burning sensation and very itchy. It is located on his cheeks and under his eyes. He has been applying calamine lotion with some relief. He reports that he has had a similar rash last year but at the time it was thought it was related to a plant exposure. He denies any exposures to plants at this time. He denies any voice change, intraoral swelling, difficulty swallowing or breathing. No new soaps lotions or detergents, no allergen exposures. 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 He does not currently take any medications and reports that he has stopped all of his medicines. Related Data Home Medications ?Medication ?Instructions ?Recorded ?Confirmed fluoxetine 40 mg capsule 40 mg PO DAILY 01/05/13 03/29/24 ibuprofen 800 mg tablet 800 mg PO TID 01/05/13 03/29/24 epinephrine 0.3 mg/0.3 mL 1 ea IM DIRECTED 04/08/15 03/29/24 injection, auto-injector (EpiPen 2-[employer]) pravastatin 10 mg tablet 10 mg PO DAILY 04/08/15 03/29/24 methylprednisolone 4 mg tablets in See Rx Instructions PO .COMPLEX 11/26/24 a dose pack (Medrol (Damion)) #21 dose pk Previous Rx's ?Medication ?Instructions ?Recorded methylprednisolone 4 mg tablets in See Rx Instructions PO .COMPLEX 11/26/24 a dose pack (Medrol (Damion)) #21 dose pk Allergies Allergy/AdvReac Type Severity Reaction Status Date / Time venom-honey bee (bee venom Allergy Severe anaphylaxis Unverified 11/26/24 09:05 (honey bee)) risperidone AdvReac Intermediate Chest Unverified 11/26/24 09:05 Palpitations General Stated Complaint: Allergic ANTHONY: 3 Exam Narrative Exam Narrative: Review of Systems: All systems reviewed & are unremarkable except as noted in HPI and below Well-developed, no acute distress NCAT PERRL, normal conjunctiva Malar appearing rash on the cheeks and under the eyes with erythema and some mild periorbital edema under the eyes, no lip swelling or tongue swelling, no intraoral lesions RRR Unlabored respiratory effort, clear bilaterally Course Vital Signs Vital signs: Vital Signs Temperature 36.5 C 11/26/24 09:01 Pulse 64 11/26/24 09:01 Respiratory Rate 18 11/26/24 09:01 Blood Pressure 161/108 H 11/26/24 09:01 Pulse Oximetry 99 11/26/24 09:01 Temperature 36.5 C 11/26/24 09:01 Temperature Source Oral 11/26/24 09:01 Pulse 64 11/26/24 09:01 Respiratory Rate 18 11/26/24 09:01 Respiratory Effort Normal, Non-Labored 11/26/24 09:06 Respiratory Pattern Normal 11/26/24 09:06 Blood Pressure 161/108 H 11/26/24 09:01 Pulse Oximetry 99 11/26/24 09:01 Oxygen Delivery Method Room Air 11/26/24 09:01 Oxygen Flow Rate 0 11/26/24 09:01 Medical Decision Making Emergent evaluation of facial rash. Initial differential includes sunburn, allergic reaction, malar rash. Patient is not on any medications that would cause a photosensitivity rash. He reports that he just told his primary doctor that he was not going to take medicine anymore. He has no known diagnosis of lupus though the rash does appear very consistent with that. He does not have any signs or symptoms concerning for an allergic reaction. Considered contact dermatitis no unclear what may be triggering this. Has had this similar rash previously and did have resolution of symptoms with steroids. Will discharge with Medrol Dosepak. Strict return precautions advised. Recommended close follow-up with PCP if symptoms are not improving he may need referral to dermatology Or additional workup. Quality:SDOH Health Related Social Needs: No Data to Display PFSH All Active Problems (Updated 11/26/24 @ 09:12 by Mikael Rivera MD) Rash of face (Acute) Photodermatitis (Acute) Social History Smoking/Tobacco Use Status: Former Tobacco Use Smoking risk assessment performed?: Yes Alcohol Intake: former Drug use: Never Substance use type: does not use Do you feel safe at home: Yes Do you feel safe in your relationship?: Yes
[2024-11-26 09:28] VITALS: BP 164/96; PULSE 60; RESP 18; O2SAT 100
== END 2024-11-26 09:28 | disposition home or self-care (01) ==
LOC: ER 09:39
PROVIDERS: Emergency Provider Emergency Medicine; PCP Internal Medicine
DX: L56.8 Other specified acute skin changes due to ultraviolet radiation (principal); R21 Rash and other nonspecific skin eruption; Z87.891 Personal history of nicotine dependence
CPT/HCPCS: 99283

== ENCOUNTER 2025-04-09 08:30 | Emergency (ER) | payer MEDICARE, SELFPAY ==
[2025-04-09 08:34] VITALS: BP 150/95; PULSE 61; RESP 18; TEMP 36.1; O2SAT 97
--- NOTE | 2025-04-09 08:46 | W.ED.GENAD ---
Discharge Plan Disposition Patient Disposition: Home Condition: Stable Discharge Details Clinical Impression: Facial swelling Primary Care Provider: Cornel Harper ED Provider: Erasmo Nunez Home Meds and New Rx's Prescriptions: New prednisolone [Millipred] 5 mg tablet See Rx Instructions .ROUTE .COMPLEX Qty: 66 0RF Rx Instructions: 40mg x 2 days, 30mg x 3 days, 20mg x 3 days, 15 mg x 3 days, 10 mg x 3 days, 5 mg x 3 days, 2.5 mg x 3 days prednisone 5 mg tablet See Rx Instructions .ROUTE .COMPLEX Qty: 66 0RF Rx Instructions: 40mg x 2 days, 30mg x 3 days, 20mg x 3 days, 15 mg x 3 days, 10 mg x 3 days, 5 mg x 3 days, 2.5 mg x 3 days Continued fluoxetine 40 MG capsule 40 mg PO DAILY Patient Comments: 5.2.16 pt states he takes 20 mg q day.HE ibuprofen 800 MG tablet 800 mg PO TID epinephrine [EpiPen 2-Damion] 0.3 MG/0.3 ML auto-injector 1 ea IM DIRECTED Patient Comments: 5..16 pt states he does not have a new epipen.HE pravastatin 10 MG tablet 10 mg PO DAILY Patient Comments: 5..16 pt does not know dose.HE trazodone 100 mg tablet 50 mg PO QHS Patient Comments: TAKE 1 TO 2 TABLETS BY MOUTH AT BEDTIME Discharge Instructions Additional Instructions: Take the prednisone as prescribed. If not improving within a week follow-up with your primary care provider. If you feel more ill or have new symptoms such as difficulty breathing or abdominal pain return to the emergency department for reevaluation. HPI General Mode of arrival: ambulatory. Date/Time Provider Initiated Documentation: 04/09/25 08:31. Limitations to Documentation: no limitations. Information obtained by: patient. History of Present Illness 69 year old M presents to the emergency department with the chief complaint of swelling of face/lips, described as mild, Patient started experiencing this hour(s) (2) and it has been constant. No relieving factors improve symptom(s), No exacerbating factors reported . Patient notes no other symptoms.. Patient did receive the following treatments prior to arrival, none Related Data Home Medications ?Medication ?Instructions ?Recorded ?Confirmed fluoxetine 40 mg capsule 40 mg PO DAILY 01/05/13 04/09/25 ibuprofen 800 mg tablet 800 mg PO TID 01/05/13 04/09/25 epinephrine 0.3 mg/0.3 mL 1 ea IM DIRECTED 04/08/15 04/09/25 injection, auto-injector (EpiPen 2-Damion) pravastatin 10 mg tablet 10 mg PO DAILY 04/08/15 04/09/25 prednisolone 5 mg tablet See Rx Instructions .Route 04/09/25 (Millipred) .COMPLEX #66 tabs prednisone 5 mg tablet See Rx Instructions .Route 04/09/25 .COMPLEX #66 tabs trazodone 100 mg tablet 50 mg PO QHS 04/09/25 04/09/25 Previous Rx's ?Medication ?Instructions ?Recorded prednisolone 5 mg tablet See Rx Instructions .Route 04/09/25 (Millipred) .COMPLEX #66 tabs prednisone 5 mg tablet See Rx Instructions .Route 04/09/25 .COMPLEX #66 tabs Allergies Allergy/AdvReac Type Severity Reaction Status Date / Time venom-honey bee (bee venom Allergy Severe anaphylaxis Unverified 04/09/25 08:37 (honey bee)) risperidone AdvReac Intermediate Chest Unverified 04/09/25 08:37 Palpitations General Stated Complaint: Allergic ANTHONY: 3 Review of Systems All systems reviewed & are unremarkable except as noted in HPI and below Constitutional Constitutional: Denies chills, Denies fever(s) and Denies weakness ENT Ears, Nose, Mouth, and Throat: Reports lip swelling Cardiovascular Cardiovascular: Denies chest pain and Denies dyspnea Respiratory Respiratory: Denies cough and Denies dyspnea Gastrointestinal Gastrointestinal: Denies abdominal pain, Denies nausea and Denies vomiting Neurologic Neurologic: Denies weakness Allergic/Immunologic Allergic/Immunologic: Reports lip swelling Exam Const General: no acute distress Orientation: alert [facility] Ears: external ears normal General nose exam: external nose normal Mouth: moist mucous membranes Throat: uvula midline Eyes General: appearance normal, both eyes and all related structures Neck Neck: normal visual inspection Resp Effort & Inspection: normal respiratory effort and able to speak in complete sentences Auscultation: clear to auscultation bilaterally Cardio Rate: regular rate Skin General skin exam: no rashes or lesions noted Neuro General: patient alert and patient oriented x3 Extrem General: normal to inspection Psych Mental Status: mental status grossly normal Course Vital Signs Vital signs: Vital Signs Temperature 36.1 C L 04/09/25 08:34 Pulse 61 04/09/25 08:34 Respiratory Rate 18 04/09/25 08:34 Blood Pressure 150/95 H 04/09/25 08:34 Pulse Oximetry 97 04/09/25 08:34 Temperature 36.1 C L 04/09/25 08:34 Temperature Source Tympanic 04/09/25 08:34 Pulse 61 04/09/25 08:34 Respiratory Rate 18 04/09/25 08:34 Blood Pressure 150/95 H 04/09/25 08:34 Pulse Oximetry 97 04/09/25 08:34 Medical Decision Making 69-year-old male who states he gets recurrent swelling of his face which he normally needs steroids for comes in today he woke up feeling like the left side of his face and lips were swollen. Denies any difficulty breathing or GI symptoms. He is well-appearing speaking full sentences. He does have some mild periorbital swelling, conjunctive appear normal and pupils are equal and reactive to light. He has full range of motion of his eyes without any pain. He does have some mild swelling of the upper lip, uvula appears normal. He has no stridor or drooling. I suspect he has some sensitivity some of the keep skin on his skin. Looks like he had a 20-day prednisone taper which he says worked last time so I will refill this. He has no signs or symptoms to suggest anaphylaxis. He will follow-up with his PCP and return precautions given Differential Diagnosis Differential Diagnosis: Contact dermatitis, photosensitivity PFSH All Active Problems (Updated 04/09/25 @ 08:49 by Erasmo Nunez MD) Facial swelling (Acute) Social History Smoking/Tobacco Use Status: Former Tobacco Use Smoking risk assessment performed?: Yes Alcohol Intake: former Drug use: Never Substance use type: does not use Do you feel safe at home: Yes Do you feel safe in your relationship?: Yes
[2025-04-09 08:59] VITALS: BP 151/76; PULSE 65; RESP 16; O2SAT 98
== END 2025-04-09 09:00 | disposition home or self-care (01) ==
LOC: ER 09:12
PROVIDERS: Emergency Provider Emergency Medicine; PCP Internal Medicine
DX: R22.0 Localized swelling, mass and lump, head (principal)
CPT/HCPCS: 99283 ×2